=== PATIENT | female | born 2000 | race Hispanic/Latino ===

== ENCOUNTER 2024-02-12 14:59 | Inpatient (IN) | payer BC ==
[~2024-02-12 14:59] MED LIST: Bupivacaine 0.25% HCL 30 ML VIAL ONE; Terbutaline Sulfate 1 MG/ML VIAL ONE; ePHEDrine Sulfate 50 MG/10 ML VIAL ONE
[2024-02-12] MEDS ORDERED: Misoprostol 200 MCG TAB PR PRN (15:18)
[2024-02-12] MEDS ORDERED: hydrALAZINE 20 MG/ML VIAL SLOW IVP PRN (15:18)
[2024-02-12] MEDS ORDERED: Ibuprofen 800 MG TAB PO PRN (15:18)
[2024-02-12] MEDS ORDERED: Ondansetron PF 4 MG/2 ML Vial IVP PRN (15:18)
[2024-02-12] MEDS ORDERED: Acetaminophen 500 MG TAB PO PRN (15:18)
[2024-02-12] MEDS ORDERED: Carboprost 250 MCG/ML AMP IM PRN (15:18)
[2024-02-12] MEDS ORDERED: Tranexamic Acid 1,000 MG/10 ML VIAL IVP PRN (15:18)
[2024-02-12] MEDS ORDERED: Lidocaine 1% (PF) 30 ML VIAL SC PRN (15:18)
[2024-02-12] MEDS ORDERED: HYDROcodone/Acetaminophen 5/325 mg Tablet PO PRN (15:18)
[2024-02-12] MEDS ORDERED: Promethazine HCl 25 MG/ML VIAL IM PRN (15:18)
[2024-02-12] MEDS ORDERED: Lactated Ringer's 1,000 ML IV SCH (15:30)
[2024-02-12] MEDS ORDERED: Oxytocin 30 units/NS 500 ML 500 ML IV SCH ×3 (15:30)
[2024-02-12 17:41] VITALS: BMI 35.9
[2024-02-12] MEDS: Misoprostol 100 MCG TAB VAG SCH (18:04)
[2024-02-12 18:10] LABS: #Basophils 0.03 10x3/uL (0.0-0.2); #Eosinphils 0.06 10x3/uL (0.0-0.5); #Monocytes 0.68 10x3/uL (0.0-1.1); %Basophils 0.4 % (0.0-2.0); %Eosinophils 0.8 % (0.0-6.0); %Lymphocytes 26.6 % (18.0-47.0); %Monocytes 9.1 % (0.0-10.0); %Neutrophils 62.6 % (40.0-75.0); Hematocrit 32.2 % (34.9-44.5); Hemoglobin 10.3 g/dL (12.0-15.5); Mean Corpuscular Hemoglobin 25.6 pg (27.0-33.0); Mean Corpuscular Volume 80.1 fl (81.6-98.3); Platelet Count 450 10x3/uL (150-450); RBC Distribution Width 15.8 % (11.5-14.5); Red Blood Cell (RBC) Count 4.02 10x6/uL (3.90-5.03); White Blood Cell (WBC) Count 7.5 10x3/uL (3.5-10.5)
[2024-02-12 18:42] LABS: Syphilis Antibody Nonreactive (Nonreactive); Syphilis Antibody Index 0.04 S/CO (<1.00 Non-Reactive)
[2024-02-12 18:43] LABS: HBSAg Index 0.25 S/CO (0-0.99); Hep B Surf Ag - L&D Non-Reactive S/CO (NonReactive)
[2024-02-12 19:12] LABS: ALT (SGPT) 10 U/L (8-55); AST (SGOT) 16 U/L (5-34); Albumin 3.4 g/dL (3.5-5.0); Alkaline Phosphatase 244 U/L (40-110); Anion Gap 11 mmol/L (10-20); BUN (Urea Nitrogen) 4 mg/dL (7.0-18.7); Bilirubin, Total 0.2 mg/dL (0.2-1.2); Calc. Creatinine Clearance 248 mL/min (70-130); Calcium 8.9 mg/dL (7.8-10.44); Carbon Dioxide 22 mmol/L (22-29); Chloride 109 mmol/L (98-107); Estimated GFR 132; Globulin 2.7 g/dL (2.4-3.5); Glucose 63 mg/dL (70-105); Protein, Total 6.1 g/dL (6.0-8.3); Sodium 138 mmol/L (136-145)
[2024-02-13] MEDS: Terbutaline Sulfate 1 MG/ML VIAL ONE (02:57)
[2024-02-13] MEDS: fentaNYL 50 mcg/mL 1 mL Vial SLOW IVP PRN ×2 (03:15→10:01)
[2024-02-13] MEDS ORDERED: diphenhydrAMINE 50 MG/ML VIAL IVP PRN (06:10)
[2024-02-13] MEDS ORDERED: ePHEDrine Sulfate 50 MG/10 ML VIAL SLOW IVP PRN (06:10)
[2024-02-13] MEDS ORDERED: Acetaminophen 325 MG TAB PO PRN ×2 (06:10→10:55)
[2024-02-13] MEDS ORDERED: Lactated Ringer's 500 ML IV PRN (06:10)
[2024-02-13] MEDS ORDERED: Naloxone HCl 0.4 mg/ml Vial IVP PRN ×4 (06:10→09:22)
[2024-02-13] MEDS ORDERED: Promethazine HCl 25 MG/ML VIAL IM PRN ×3 (06:10→10:55)
[2024-02-13] MEDS ORDERED: Moisturizing Cream (Eucerin) 113 GM JAR TOP PRN ×2 (06:10→09:22)
[2024-02-13] MEDS ORDERED: Ondansetron PF 4 MG/2 ML Vial IVP PRN ×5 (06:10→10:55)
[2024-02-13] MEDS ORDERED: Communication Order-Pharmacy FS SCH ×2 (06:15→09:30)
[2024-02-13] MEDS ORDERED: fentaNYL 2 mcg/Ropivacaine 0.2% Epidural 100 ML CADD EPIDURAL SCH (06:15)
[2024-02-13] MEDS: fentaNYL/Ropivacaine Epidural 100 ML ONE (06:32)
[2024-02-13] MEDS ORDERED: Famotidine/PF 20 mg/2ml Vial SLOW IVP PRN (06:53)
[2024-02-13] MEDS ORDERED: Bicitra 30 ML UDCUP PO PRN (06:53)
[2024-02-13] MEDS ORDERED: CEFAZOLIN 2 GM in Sodium Chloride 0.9% 100 ML IVPB SCH (07:00)
[2024-02-13] MEDS: Diphenoxylate HCl/Atropine Tablet PO PRN (08:32)
[2024-02-13] MEDS ORDERED: fentaNYL 50 mcg/mL 1 mL Vial SLOW IVP PRN (09:01)
[2024-02-13] MEDS ORDERED: Meperidine HCl/PF 25 MG (1 mL) VIAL SLOW IVP PRN ×2 (09:01→09:22)
[2024-02-13] MEDS ORDERED: Ketorolac Tromethamine 30 MG (1 mL) VIAL IVP SCH ×2 (09:15→09:30)
[2024-02-13] MEDS ORDERED: HYDROmorphone 0.5 MG/0.5 ML SYRINGE SLOW IVP PRN (09:22)
[2024-02-13] MEDS ORDERED: Naloxone HCl 0.4 mg/ml Vial IV PRN (09:22)
[2024-02-13] MEDS ORDERED: Promethazine HCl 25 MG SUPP PR PRN (09:22)
[2024-02-13] MEDS: Meperidine HCl/PF 25 MG (1 mL) VIAL SLOW IVP SCH (09:27)
[2024-02-13] MEDS ORDERED: Bisacodyl 10 MG SUPP PR PRN (10:55)
[2024-02-13] MEDS ORDERED: Lanolin Ointment 7 GM TUBE TOP PRN (10:55)
[2024-02-13] MEDS ORDERED: hydrALAZINE 20 MG/ML VIAL SLOW IVP PRN (10:55)
[2024-02-13] MEDS ORDERED: Oxytocin 30 units/NS 500 ML 500 ML IV SCH (10:55)
[2024-02-13] MEDS: fentaNYL 50 mcg/mL 1 mL Vial ONE (12:34)
[2024-02-13] MEDS: Oxytocin 10 UNITS/ML VIAL ONE ×2 (12:34→12:35)
[2024-02-13] MEDS: Morphine PF 10 MG/10 ML VIAL ONE (12:34)
[2024-02-13] MEDS: Famotidine/PF 20 mg/2ml Vial ONE (12:34)
[2024-02-13] MEDS: Ondansetron PF 4 MG/2 ML Vial ONE (12:35)
[2024-02-13] MEDS: Tranexamic Acid 1,000 MG/10 ML VIAL ONE (12:35)
[2024-02-13] MEDS: Misoprostol 200 MCG TAB ONE (12:35)
[2024-02-13] MEDS: Methylergonovine 0.2 MG/ML VIAL ONE (12:35)
[2024-02-13] MEDS: Carboprost 250 MCG/ML AMP ONE ×2 (12:35)
[2024-02-13] MEDS: diphenhydrAMINE 50 MG/ML VIAL ONE (12:35)
[2024-02-13] MEDS: CEFAZOLIN 2 GM VIAL ONE (12:39)
[2024-02-13] MEDS: Ferrous Sulfate 325 MG TAB PO SCH (12:39)
[2024-02-13] MEDS: Docusate 100 MG CAP PO SCH ×2 (13:19→20:43)
[2024-02-13] MEDS: Prenatal Vitamin 1 TAB PO SCH (13:19)
[2024-02-13] MEDS: Ketorolac Tromethamine 30 MG (1 mL) VIAL IVP PRN (16:34)
[2024-02-13] MEDS: diphenhydrAMINE 50 MG/ML VIAL IVP PRN (16:34)
[2024-02-13] MEDS: Simethicone Chewable 80 MG TAB PO PRN (16:34)
[2024-02-13] MEDS: Boostrix 0.5 ML (Tdap) VIAL (>/=7 yrs of age) IM ONE (18:33)
[2024-02-13] MEDS: diphenhydrAMINE 25 MG CAP PO PRN (20:43)
[2024-02-14] MEDS: HYDROcodone/Acetaminophen 5/325 mg Tablet PO PRN (02:45)
[2024-02-14 04:33] LABS: Hematocrit 26.2 % (34.9-44.5); Hemoglobin 8.5 g/dL (12.0-15.5); Mean Corpuscular HGB CONC 32.4 g/dL (32.0-36.0); Mean Corpuscular Hemoglobin 25.8 pg (27.0-33.0); Mean Corpuscular Volume 79.4 fl (81.6-98.3); Mean Platelet Volume 9.8 fl (7.4-10.4); Platelet Count 418 10x3/uL (150-450); White Blood Cell (WBC) Count 12.6 10x3/uL (3.5-10.5)
[2024-02-14] MEDS: Measles/Mumps/Rubella 10 MCG/0.5 ML VIAL SC ONE (07:32)
[2024-02-14] MEDS: Ferrous Sulfate 325 MG TAB PO SCH (07:37)
[2024-02-14] MEDS: Prenatal Vitamin 1 TAB PO SCH (08:24)
[2024-02-14] MEDS: Ibuprofen 800 MG TAB PO SCH (14:21)
[2024-02-15] MEDS: HYDROcodone/Acetaminophen 5/325 mg Tablet PO PRN (05:06)
[2024-02-16 07:59] VITALS: BP 123/63; TEMP 98.3
== END 2024-02-16 13:40 | disposition home or self-care (01) | DRG 787 ==
LOC: CSHLD 14:59 → CSHPED 02-13 11:15
PROVIDERS: ADMIT Family Medicine; ATTEND Family Medicine
PROC: 10D00Z1 Extraction of Products of Conception, Low, Open Approach (ICD-10-PCS; principal; 2024-02-13)
DX: O14.14 Severe pre-eclampsia complicating childbirth (principal); D62 Acute posthemorrhagic anemia; Z3A.38 38 weeks gestation of pregnancy; Z37.0 Single live birth; Z91.040 Latex allergy status; O76 Abnormality in fetal heart rate and rhythm complicating labor and delivery; O45.93 Premature separation of placenta, unspecified, third trimester; O13.4 Gestational [pregnancy-induced] hypertension without significant proteinuria, complicating childbirth; O62.2 Other uterine inertia; O90.81 Anemia of the puerperium
CPT/HCPCS: 36415; 51702; 80053; 82570; 84156; 85025; 85027; 86780; 86850; 86900; 86901; 87340; 88307; J0665; J1200; J1885; J2175; J2210; J2274; J2405; J2590; J3010; J3105; J3490; S0028